=== PATIENT | female | born 2000 | race Caucasian/White ===

== ENCOUNTER 2018-05-24 12:36 | Emergency (ER) | payer SELFPAY ==
[2018-05-24 12:50] VITALS: O2SAT 100
[2018-05-24] MEDS ORDERED: Sodium Chloride 0.9% 1,000 ML IV ONE (13:03)
[2018-05-24 13:31] LABS: BASO % 0.5 % (0.0-2.0); EOS % 0.2 % (0.0-4.0); HEMOGLOBIN 12.2 g/dL (11.0-16.0); LYMPH # 1.6 K/uL (1.0-4.3); LYMPH % 21.3 % (20.0-40.0); MEAN CELL VOLUME 92.4 fL (81.0-99.0); MEAN CORPUSCULAR HGB CONC 34.6 g/dL (33.0-37.0); MEAN PLATELET VOLUME 9.3 fL (7.2-11.7); MONO # 0.5 K/uL (0.0-0.8); MONO % 6.4 % (0.0-10.0); NEUT # 5.4 K/uL (1.8-7.0); NEUT % 71.6 % (50.0-75.0); NRBC % 0.1 % (0.0-2.0); RBC 3.8 Mil/uL (3.80-5.20); RED CELL DISTRIBUTION WIDTH 12.8 % (11.5-14.5); WHITE BLOOD COUNT 7.6 K/uL (4.8-10.8)
[2018-05-24] MEDS ORDERED: Sodium Chloride 0.9% 1,000 ML ONE (13:32)
[2018-05-24 13:36] LABS: HCG,QUALITATIVE URINE POSITIVE (NEGATIVE)
[2018-05-24 13:37] LABS: SQUAMOUS EPITHIAL 3 /hpf (0-5); URINE BACTERIA FEW (<OCC); URINE BILIRUBIN NEGATIVE (NEGATIVE); URINE BLOOD NEGATIVE (NEGATIVE); URINE CLARITY Hazy (Clear); URINE COLOR Amber (YELLOW); URINE GLUCOSE (UA) NORMAL (Normal); URINE LEUKOCYTE ESTERASE TRACE Leu/uL (Negative); URINE PROTEIN 1+ mg/dL (NEGATIVE)
--- NOTE | 2018-05-24 13:55 | C.PDOC ---
History Of Present Illness 18 year old female presents to ED for evaluation of lower abdominal pain associated with nausea for the last 2 weeks. Notes she did have positive home test. LMP: 03/30/2018. She admits to dysuria. Otherwise, denies vomiting, diarrhea, flank pain, fever, or chills. Time Seen by Provider: 05/24/18 12:43 Chief Complaint (Nursing): Abdominal Pain History Per: Patient History/Exam Limitations: no limitations Onset/Duration Of Symptoms: Days Current Symptoms Are (Timing): Still Present Location Of Pain/Discomfort: Suprapubic Radiation Of Pain To:: None Quality Of Discomfort: "Pain" Associated Symptoms: Nausea. denies: Vomiting, Diarrhea, Loss Of Appetite, Back Pain, Chest Pain Exacerbating Factors: None Alleviating Factors: None Additional History Per: Patient Abnormal Vaginal Bleeding: No Last Menstral Period: 03/30/2018 : 1 Para: 0 Past Medical History Reviewed: Historical Data, Nursing Documentation, Vital Signs Vital Signs: Last Vital Signs Temp 98.9 F 05/24/18 12:42 Pulse 94 H 05/24/18 12:42 Resp 20 05/24/18 12:42 BP Pulse Ox 100 05/24/18 12:42 Family History: States: Unknown Family Hx - Social History Hx Alcohol Use: No Hx Substance Use: No - Immunization History Hx Tetanus Toxoid Vaccination: Yes Hx Influenza Vaccination: Yes Hx Pneumococcal Vaccination: Yes Review Of Systems Except As Marked, All Systems Reviewed And Found Negative. Constitutional: Negative for: Fever, Chills Gastrointestinal: Positive for: Nausea, Abdominal Pain. Negative for: Vomiting, Diarrhea Genitourinary: Positive for: Dysuria. Negative for: Hematuria, Vaginal Discharge Musculoskeletal: Negative for: Back Pain Physical Exam - Physical Exam Appears: Non-toxic, No Acute Distress Skin: Normal Color, Warm, Dry Head: Normacephalic Eye(s): bilateral: Normal Inspection Oral Mucosa: Moist Neck: Normal ROM, Supple Cardiovascular: Rhythm Regular, No Murmur Respiratory: Normal Breath Sounds, No Rales, No Rhonchi, No Wheezing Gastrointestinal/Abdominal: Soft, Tenderness (suprapubic), No Guarding, No Rebound Back: No CVA Tenderness Extremity: Normal ROM Neurological/Psych: Oriented x3, Normal Speech ED Course And Treatment - Laboratory Results Result Diagrams: 05/24/18 13:25 05/24/18 13:25 O2 Sat by Pulse Oximetry: 100 (RA) Pulse Ox Interpretation: Normal - CT Scan/US transvaginal US Other Rad Studies (CT/US): Read By Radiologist, Radiology Report Reviewed CT/US Interpretation: Accession No. : [id number]. Patient Name / ID : MOISES CANDELARIA / [id number]. Exam Date : 05/24/2018 14:16:39 ( Approved ). Dashawn dy Comment : Sex / Age : F / 18Y. Creator : Pancho Crump MD. Dictator : Pancho Crump MD. Security Guards Dispatcher : Teletype Telegrapher : Pancho Crump MD. Approver2 : Report Date : 05/24/2018 16:49:12. My Comment : . Date of service: 05/24/2018. PROCEDURE: OB Pelvic Ultrasound. HISTORY: pelvic pain, . LMP: 03/30/2018 suggesting gestation of 7 weeks 6 days. COMPARISON: None available. FINDINGS: Technique: Trans abdominal sonography was performed with longitudinal and transverse projections submitted for interpretation. UTERUS: Gestational sac: Single intrauterine gestation. Yolk sac and pole identified. Heart rate: 156 bpm. age (Ultrasound estimated): 7 weeks 2 days based on mean CRL of 1.16 cm. Ying-gestational hemorrhage: There is a hypoechoic collection seen in the subchorionic space supero anteriorly measuring 1.9 x 0.7 x 1.5 cm reflecting probable subacute or chronic hemorrhage. Date of delivery (Ultrasound estimated) : 01/06/2019. Uterus measures 9.0 x 6.0 x 7.8 cm. Normal in size and appearance. CERVIX: Measures 3.4 cm. Long and closed. No cervical abnormality seen. RIGHT OVARY: Measures 3.1 x 2.1 x 3.6 cm. No mass lesion. Normal flow. LEFT OVARY: Measures 3.4 x 1.6 x 2.8 cm. No solid mass. Normal flow. FREE FLUID: None. OTHER FINDINGS: None. IMPRESSION: A single viable intrauterine gestation is identified with CRL derived ultrasonic age of 7 weeks 2 days. cardiac activity recorded 156 beats per minute. Small subchorionic hemorrhage is appreciated likely subacute or possibly early chronic time frame. No suspicious adnexal findings. Progress Note: Blood work, urinalysis, OB transvaginal ultrasound ordered and reviewed. Pt was given IV fluids. Disposition Counseled Patient/Family Regarding: Studies Performed, Diagnosis, Need For Followup - Disposition Referrals: [facility] [Outside] Disposition: HOME/ ROUTINE Disposition Time: 17:15 Condition: STABLE Additional Instructions: FOLLOW UP WITH YOUR ACO COORDINATOR WITHIN 1 WEEK RETURN TO ER IF YOUR SYMPTOMS WORSEN Instructions: Bleeding With (DC) Forms: [employer] (Estonian) Print Language: MACEDONIAN - Clinical Impression Clinical Impression: First trimester bleeding, Subchorionic hemorrhage - Scribe Statement The provider has reviewed the documentation as recorded by the Scribe KP All medical record entries made by the Scribe were at my direction and personall y dictated by me. I have reviewed the chart and agree that the record accurately reflects my personal performance of the history, physical exam, medical decision making, and the department course for this patient. I have also personally directed, reviewed, and agree with the discharge instructions and disposition.
[2018-05-24 13:56] LABS: ALB/GLOB RATIO 1.4 (1.0-2.1); ALBUMIN 4.4 g/dL (3.5-5.0); ALT/SGPT 11 U/L (9-52); AST/SGOT 16 U/L (14-36); BLOOD UREA NITROGEN 7 mg/dL (7-17); CALCIUM 9.4 mg/dl (8.6-10.4); GFR NON-AFRICAN AMERICAN > 60
--- NOTE | 2018-05-24 16:53 | US ---
Date of service: 05/24/2018 PROCEDURE: OB Pelvic Ultrasound HISTORY: pelvic pain, LMP: 03/30/2018 suggesting gestation of 7 weeks 6 days. COMPARISON: None available. FINDINGS: Technique: Trans abdominal sonography was performed with longitudinal and transverse projections submitted for interpretation. UTERUS: Gestational sac: Single intrauterine gestation. Yolk sac and pole identified. Heart rate: 156 bpm. age (Ultrasound estimated): 7 weeks 2 days based on mean CRL of 1.16 cm Ying-gestational hemorrhage: There is a hypoechoic collection seen in the subchorionic space supero anteriorly measuring 1.9 x 0.7 x 1.5 cm reflecting probable subacute or chronic hemorrhage. Date of delivery (Ultrasound estimated) : 01/06/2019. Uterus measures 9.0 x 6.0 x 7.8 cm. Normal in size and appearance. CERVIX: Measures 3.4 cm. Long and closed. No cervical abnormality seen. RIGHT OVARY: Measures 3.1 x 2.1 x 3.6 cm. No mass lesion. Normal flow. LEFT OVARY: Measures 3.4 x 1.6 x 2.8 cm. No solid mass. Normal flow. FREE FLUID: None. OTHER FINDINGS: None. IMPRESSION: A single viable intrauterine gestation is identified with CRL derived ultrasonic age of 7 weeks 2 days. cardiac activity recorded 156 beats per minute. Small subchorionic hemorrhage is appreciated likely subacute or possibly early chronic time frame. No suspicious adnexal findings.
[2018-05-24 17:50] VITALS: BP 116/58; PULSE 79; RESP 17; TEMP 98.2
== END 2018-05-24 17:40 | disposition home or self-care (01) ==
LOC: C.ER 12:36
DX: O20.9 Hemorrhage in early pregnancy, unspecified (principal); Z3A.01 Less than 8 weeks gestation of pregnancy
CPT/HCPCS: 76801; 80053; 81001; 84702; 84703; 85025; 86850; 86900; 99285; J7030